=== PATIENT | female | born 1990 | race African-American/Black ===

== ENCOUNTER 2020-03-22 12:03 | Emergency (ER) | payer MEDICARE, OTHER ==
[~2020-03-22] VITALS: Ht 157.5 cm; Wt 87.1 kg
--- NOTE | 2020-03-22 12:36 | Emergency Department Note ---
History of Present Illnes History of Present Illness Chief Complaint: Eye, Ear, Nose, Throat, Dental History of Present Illness This is a 29 year old female arrived to the ED with left-sided tooth pain, patient states she cannot get into see a dentist until April, patient states pain is unbearable and sensitive to hot and cold. Historian: Patient Arrival Mode: Car Freight Trucker Required: No Severity: mild Duration (how long): week(s) Progression: unchanged Chronicity: new Relieving factors: none Exacerbating factors: none Past Medical/Family History Physician Review I have reviewed the patient's past medical and family history. Any updates have been documented here. Past Medical History Recent Fever: No Clinical Suspicion of Infectio: No New/Unexplained Change in Ment: No Past Medical History: Anxiety Past Surgical History: Appendectomy, Social History Smoking Cessation: Current every day smoker Counseling Performed: No Alcohol Use: Occasional Any Illegal Drug Use: No Physically hurt or threatened: No Other Any Pre-Existing Lines (PICC,: No Review of Systems Review of Systems Constitutional: Reports no symptoms EENTM: Reports as per HPI, Reports other (dental pain) Cardiovascular: Reports no symptoms Respiratory: Reports no symptoms Gastrointestinal: Reports no symptoms Genitourinary: Reports no symptoms Musculoskeletal: Reports no symptoms Integumentary: Reports no symptoms Neurological: Reports no symptoms Psychological: Reports no symptoms Endocrine: Reports no symptoms Hematological/Lymphatic: Reports no symptoms Physical Exam Related Data Allergies: Coded Allergies: ondansetron (Verified Allergy, Severe, hives, headache, 03/22/20) Uncoded Allergies: STRAWBERRIES (Allergy, Severe, 03/22/20) Triage Vital Signs Vital Signs Date Time Temp Pulse Resp B/P (MAP) Pulse Ox O2 Delivery O2 Flow Rate FiO2 03/22/20 12:07 99.3 112 18 106/65 99 Room Air Vital signs reviewed: Yes Physical Exam CONSTITUTIONAL Constitutional: Present well-developed, Present well-nourished HENT HENT: Present normocephalic, Present atraumatic, Present oropharynx clear/moist, Present nose normal, Present other (and dental caries noted, no tongue elevation, no oral edema, no foul-smelling odor/discharge noted) HENT L/R: Present left ext ear normal, Present right ext ear normal EYES Eyes: Reports PERRL, Reports conjunctivae normal NECK Neck: Present ROM normal PULMONARY Pulmonary: Present effort normal, Present breath sounds normal CARDIOVASCULAR Cardiovascular: Present regular rhythm, Present heart sounds normal, Present capillary refill normal, Present normal rate GASTROINTESTINAL Abdominal: Present soft, Present nontender, Present bowel sounds normal GENITOURINARY Genitourinary: Present exam deferred SKIN Skin: Present warm, Present dry MUSCULOSKELETAL Musculoskeletal: Present ROM normal NEUROLOGICAL Neurological: Present alert, Present oriented x 3, Present no gross motor or sensory deficits PSYCHOLOGICAL Psychological: Present mood/affect normal, Present judgement normal Assessment & Plan Medical Decision Making MDM 29-year-old female arrives to the ED with complaints of dental pain, dental caries she is on exam, patient's airway intact no drooling or stridor noted, no concerns of abscess or Alexis's angina time of discharge. Patient discharged home antibiotics, has outpatient dental follow-up. Assessment & Plan Final Impression: (1) Dental caries Depart Disposition: HOME, SELF-CARE Last Vital Signs Date Time Temp Pulse Resp B/P (MAP) Pulse Ox O2 Delivery O2 Flow Rate FiO2 03/22/20 12:07 99.3 112 18 106/65 99 Room Air Home Meds Active Scripts Acetaminophen With Codeine (TYLENOL WITH CODEINE #3 TABLET) 1 Each Tablet, 300 MG PO Q8HR PRN for Mild Pain (1-3) or Fever>100.8, #14 TAB Prov:CHRIS YEN, DO 03/22/20 Tramadol Hcl (ULTRAM) 50 Mg Tablet, 50 MG PO Q6HR PRN for Mild Pain (1-3) or Fever>100.8, #14 TAB Prov:CHRIS YEN, DO 03/22/20 Amoxicillin/Potassium Clav (AUGMENTIN 875-125 TABLET) 1 Each Tablet, 875 MG PO DAILY, #14 TAB Prov:CHRIS YEN, DO 03/22/20 Sulfamethoxazole/Trimethoprim (BACTRIM DS TABLET) 1 Each Tablet, 1 TAB PO BID, #20 TAB 0 Refills Prov:CHRIS YEN, 03/22/20 CHRIS YEN DO Mar 22, 2020 12:36
--- OUTSIDE RECORDS SUMMARY | 2020-03-22 12:37 | XMS REPORT | Continuity of Care Document ---
Author Author [facility] Organization [facility] Address [address] [place] [address] Phone Unavailable Care Team Providers Care On Air Announcer Name Role Phone Unavailable Unavailable Payers Payer Name Policy Type Policy Number Effective Date Expiration Date S ource Problems This patient has no known problems. Allergies, Adverse Reactions, Alerts Allergy Name Allergy Type Status Severity Reaction(s) Onset Date Inacti ve Date Treating Clinician Comments Source ondansetron DA Active [place] 2016-09-29 00:00:00 [facility] strawberry FA Active [place] 2016-09-29 00:00:00 [facility] Medications This patient has no known medications. Procedures This patient has no known procedures. Results Test Description Test Time Test Comments Results Result Comments Source - XR NECK SOFT TISSUE 2020-03-01 06:11:00 FAX: Edgar Mejia MD [phone] [place]: [address]: REG -- Name: TRAVIS MEDINA LEXI JOSE LUIS [facility] : 1990 Age/S: 29/F Travis Condon Unit #: [id number] Loc: [place] [address] Phys: Edgar Mejia MD Acct: [id number] Dis Date: Status: REG ER PHONE #: [phone] Exam Date: 03/01/2020528 FAX #: [phone] Reason: swallowed FB EXAMS: CPT CODE: [id number] XR NECK SOFT TISSUE [id number] AFTER HOURS SERVICE ON: 03/01/2020 6:10 AM Neck Soft Tissues, 2 View Location Code M12 History: swallowed FB Findings: There is no radiopaque foreign body. Visualized portions of the nasopharynx and oropharynx are patent. No significant enlargement of the adenoid or palatine tonsils seen. No soft tissue masses, mass effect or prevertebral soft tissue swelling is seen. Impression: Unremarkable neck soft tissue. at 0611 Reported and signed by: Julio Shrestha M.D. CC: Edgar Mejia MD Technologist: Nora Hameed Trnscrd Date/Time/By: 03/01/2020 (610) : By: [email or web address] Orig Print D/T: S: 03/01/2020 (0614) PAGE 1 Signed Report
[2020-03-22] MEDS ORDERED: HYDROCODONE/APAP 10MG-325MG TAB PO ONE (12:45)
[2020-03-22] MEDS ORDERED: TYLENOL WITH C1 EACH PO (12:54)
[2020-03-22] MEDS ORDERED: AUGMENTIN 875-1 EACH PO (12:54)
[2020-03-22] MEDS ORDERED: ULTRAM50 MG PO (12:54)
[2020-03-22] MEDS ORDERED: BACTRIM DS TAB1 EACH PO (12:54)
== END 2020-03-22 13:49 | disposition home or self-care (01) ==
LOC: ER 12:34
DX: K02.9 Dental caries, unspecified (principal); F41.9 Anxiety disorder, unspecified; F17.210 Nicotine dependence, cigarettes, uncomplicated
CPT/HCPCS: 99283

== ENCOUNTER 2020-05-14 09:50 | Emergency (ER) | payer SELFPAY ==
[~2020-05-14] VITALS: Ht 157.5 cm; Wt 87.1 kg
[~2020-05-14 09:50] MED LIST: AUGMENTIN 875-1 EACH PO; BACTRIM DS TAB1 EACH PO; TYLENOL WITH C1 EACH PO; ULTRAM50 MG PO
[2020-05-14] MEDS ORDERED: IBUPROFEN 600 MG TAB PO STA (09:59)
[2020-05-14] MEDS ORDERED: ACETAMINOPHEN 325 MG TAB PO ONE (10:00)
--- OUTSIDE RECORDS SUMMARY | 2020-05-14 10:12 | XMS REPORT | Continuity of Care Document ---
Author Author [facility] Organization [facility] Address [address] [place] [address] Phone Unavailable Care Team Providers Care Linux Engineer Name Role Phone NO, PCP PCP Unavailable Payers Payer Name Policy Type Policy Number Effective Date Expiration Date S ource Problems Condition Name Condition Details Condition Category Status Onset Date Resolution Date Last Treatment Date Treating Clinician Comments Source Dental caries Problem Active I [facility] Allergies, Adverse Reactions, Alerts Allergy Name Allergy Type Status Severity Reaction(s) Onset Date Inacti ve Date Treating Clinician Comments Source Ondansetron Allergy to substance Active Severe hives, headach e 2020-03-22 00:00:00 [facility] STRAWBERRIES Allergy to substance Active Severe 2020-03-22 00:00:0 0 [facility] ondansetron DA Active [place] 2016-09-29 00:00:00 [facility] strawberry FA Active [place] 2016-09-29 00:00:00 [facility] Social History Social Habit Start Date Stop Date Quantity Comments Source Sex Assigned At 1990 00:00:00 1990 00:00:00 Female [facility] Medications Ordered Medication Name Filled Medication Name Start Date Stop Da te Current Medication? Ordering Clinician Indication Dosage Frequency Signature (SIG) Comments Components Source Acetaminophen With Codeine (Tylenol With Codeine #3 Ta blet) 1 Each TABLET Acetaminophen With Codeine (Tylenol With Codeine #3 Tablet) 1 Each TABLET 2020-03-22 12:54:00 Yes 300 Every 8 Hours as needed for Mild Pain (1-3) Or Fever>100.8 [facility] Amoxicillin/Potassium Clav (Augmentin 875-125 Tablet) 1 Each TABLET Amoxicillin/Potassium Clav (Augmentin 875-125 Tablet) 1 Each TABLET 2020-03-22 12:54:00 Yes 875 Daily [facility] Sulfamethoxazole/Trimethoprim (Bactrim Ds Tablet) 1 Ea ch TABLET Sulfamethoxazole/Trimethoprim (Bactrim Ds Tablet) 1 Each TABLET 2020-03-22 12:54:00 Yes 1 Twice A Day [facility] Tramadol Hcl (Ultram) 50 Mg TABLET Tramadol Hcl (Ultram) 50 Mg TABLET 2020-03-22 12:54:00 Yes 50 Every 6 Ho urs as needed for Mild Pain (1-3) Or Fever>100.8 [facility] Vital Signs Vital Name Observation Time Observation Value Comments Source Body Temperature 2020-03-22 13:42:00 97.8 [degF] [facility] Weight 2020-03-22 12:07:00 192 [lb_av] [facility] BMI (Body Mass Index) 2020-03-22 12:07:00 35.1 kg/m2 [facility] Procedures This patient has no known procedures. Plan of Care Planned Activity Planned Date Details Comments Source Instructions Dental Caries (Cavities) [facility] Encounters Start Date/Time End Date/Time Encounter Type Admission Type [facility] Care Department Encounter ID Source 2020-03-22 12:34:00 2020-03-22 13:49:00 Departed Emergency Room [facility] [id number] [facility] Results Test Description Test Time Test Comments Results Result Comments Source - XR NECK SOFT TISSUE 2020-03-01 06:11:00 FAX: Edgar Mejia MD [phone] [place]: [address]: REG -- Name: TRAVIS MEDINA [facility] : 1990 Age/S: 29/F Travis Condon Unit #: [id number] Loc: [place] [address] Phys: Edgar Mejia MD Acct: [id number] Dis Date: Status: REG ER PHONE #: [phone] Exam Date: 03/01/2020528 FAX #: [phone] Reason: swallowed FB EXAMS: CPT CODE: [id number] XR NECK SOFT TISSUE [id number] AFTER HOURS SERVICE ON: 03/01/2020 6:10 AM [...] MD Technologist: Nora Hameed Trnscrd Date/Time/By: 03/01/2020 (0611) : By: [email or web address] Orig Print D/T: S: 03/01/2020 (0614) PAGE 1 Signed Report
--- NOTE | 2020-05-14 10:13 | Emergency Department Note ---
History of Present Illnes History of Present Illness Chief Complaint: General Medicine Complaints History of Present Illness This is a 29 year old female Chief Complaint Comment PATIENT IN FROM HOME WITH COMPLAINTS OF DENTAL PAIN X 2 WEEKS TO LEFT LOWER TOOTH; STATES SWELLING STARTED LAST NIGHT; STATES THAT SHE HAS NO ISSUES BREATHING OR SWALLOWING ISSUES. PATIENT STATES THAT SHE HAD A DENTAL APPOINTMENT IN , BUT THEY WERE CLOSED WHEN SHE WENT THERE. RATES PAIN 01/24. Historian: Patient Arrival Mode: Car Service Order Dispatcher Required: No Onset (how long ago): day(s) (1) Location: L lower face Quality: Sharp Severity: mild Onset quality: gradual Duration (how long): day(s) (1) Timing of current episode: constant Progression: worsening Chronicity: new Context: Denies recent illness, Denies recent surgery Relieving factors: none Exacerbating factors: none Associated symptoms: Reports denies other symptoms Treatments prior to arrival: none Past Medical/Family History Physician Review I have reviewed the patient's past medical and family history. Any updates have been documented here. Past Medical History Recent Fever: No Clinical Suspicion of Infectio: No New/Unexplained Change in Ment: No Past Medical History: Anxiety Past Surgical History: Appendectomy, Social History Smoking Cessation: Current every day smoker Counseling Performed: Yes Alcohol Use: None Any Illegal Drug Use: No Physically hurt or threatened: No Other Any Pre-Existing Lines (PICC,: No Review of Systems Review of Systems Constitutional: Reports no symptoms EENTM: Reports as per HPI, Reports mouth pain Cardiovascular: Reports no symptoms Respiratory: Reports no symptoms Gastrointestinal: Reports no symptoms Genitourinary: Reports no symptoms Musculoskeletal: Reports no symptoms Integumentary: Reports no symptoms Neurological: Reports no symptoms Psychological: Reports no symptoms Endocrine: Reports no symptoms Hematological/Lymphatic: Reports no symptoms Physical Exam Related Data Allergies: Coded Allergies: ondansetron (Verified Allergy, Severe, hives, headache, 05/14/20) strawberry (Verified Allergy, Severe, 05/14/20) Triage Vital Signs Vital Signs Date Time Temp Pulse Resp B/P (MAP) Pulse Ox O2 Delivery O2 Flow Rate FiO2 05/14/20 09:51 98.2 86 20 130/80 100 Room Air Vital signs reviewed: Yes Physical Exam CONSTITUTIONAL Constitutional: Present well-developed, Present well-nourished HENT HENT: Present normocephalic, Present atraumatic, Present oropharynx clear/moist, Present nose normal, Present other (Mild lower left mandibular swelling. [place] tooth imbedded in L cheek/gums. No abscess) HENT L/R: Present left ext ear normal, Present right ext ear normal EYES Eyes: Reports PERRL, Reports conjunctivae normal NECK Neck: Present ROM normal PULMONARY Pulmonary: Present effort normal, Present breath sounds normal CARDIOVASCULAR Cardiovascular: Present regular rhythm, Present heart sounds normal, Present capillary refill normal, Present normal rate GASTROINTESTINAL Abdominal: Present soft, Present nontender, Present bowel sounds normal GENITOURINARY Genitourinary: Present exam deferred SKIN Skin: Present warm, Present dry MUSCULOSKELETAL Musculoskeletal: Present ROM normal NEUROLOGICAL Neurological: Present alert, Present oriented x 3, Present no gross motor or sensory deficits PSYCHOLOGICAL Psychological: Present mood/affect normal, Present judgement normal Assessment & Plan Medical Decision Making MDM 29-year-old female presents for left lower dental pain. Examination shows embedded wisdom tooth with no signs of obvious abscess. Mild swelling to the left lower cheek without signs of airway compromise. No signs of Alexis angina, dental abscess, osteonecrosis. Diagnosis favors dental caries causing local tissue edema. We'll prescribe her Augmentin twice a day for 7 days and she will follow-up with her dentist concerning current management. Patient states treatment plan she is appropriate for discharge. Reassessment Reassessment time: 10:12 Reassessment Well appearing, NAD Assessment & Plan Final Impression: (1) Dental caries Depart Disposition: HOME, SELF-CARE Last Vital Signs Date Time Temp Pulse Resp B/P (MAP) Pulse Ox O2 Delivery O2 Flow Rate FiO2 05/14/20 09:51 98.2 86 20 130/80 100 Room Air Home Meds Active Scripts Acetaminophen With Codeine (TYLENOL WITH CODEINE #3 TABLET) 1 Each Tablet, 300 MG PO Q8HR PRN for Mild Pain (1-3) or Fever>100.8, #14 TAB Prov:SANDHIR, AMBICA, DO 03/22/20 Tramadol Hcl (ULTRAM) 50 Mg Tablet, 50 MG PO Q6HR PRN for Mild Pain (1-3) or Fever>100.8, #14 TAB Prov:SANDHIR, AMBICA, DO 03/22/20 Amoxicillin/Potassium Clav (AUGMENTIN 875-125 TABLET) 1 Each Tablet, 875 MG PO DAILY, #14 TAB Prov:CHRIS YEN DO 03/22/20 Sulfamethoxazole/Trimethoprim (BACTRIM DS TABLET) 1 Each Tablet, 1 TAB PO BID, #20 TAB 0 Refills Prov:CHRIS YEN, 03/22/20 Medications in the ED Acetaminophen 975 mg ONCE ONCE PO ; Start 05/14/20 at 10:00; Stop 05/14/20 at 10:01; Status DC Ibuprofen 600 mg ONCE STAT PO ; Start 05/14/20 at 09:59; Stop 05/14/20 at 10:01; Status DC MYLA ROBLES MD May 14, 2020 10:13
== END 2020-05-14 10:18 | disposition home or self-care (01) ==
LOC: ER 10:00
DX: K08.89 Other specified disorders of teeth and supporting structures (principal); K02.9 Dental caries, unspecified
CPT/HCPCS: 99283

== ENCOUNTER 2021-02-18 21:06 | Emergency (ER) | payer OTHER ==
[~2021-02-18] VITALS: Ht 157.5 cm; Wt 87.1 kg
[2021-02-18] MEDS ORDERED: ACETAMINOPHEN/CODEINE 300MG - 30MG TAB PO ONE (21:15)
[2021-02-18] MEDS ORDERED: CLINDAMYCIN HC150 MG PO (21:29)
[2021-02-18] MEDS ORDERED: TYLENOL # 31 EA PO (21:29)
== END 2021-02-18 22:02 | disposition home or self-care (01) ==
LOC: ER 21:08
DX: K02.9 Dental caries, unspecified (principal)
CPT/HCPCS: 99283